=== PATIENT | male | born 1990 | race African-American/Black ===

== ENCOUNTER 2023-06-01 09:02 | Emergency (ER) | payer MEDICAID, SELFPAY ==
--- NOTE | ~2023-06-01 | XR_ITS ---
EXAMINATION: XR LUMBOSACRAL SPINE CLINICAL INFORMATION: Tenderness COMPARISON: None available. TECHNIQUE: Three views of the lumbosacral spine. FINDINGS: The vertebral bodies are normal. Facet arthropathy is present at L5-S1. The disc spaces are preserved and the vertebral alignment is normal. The paraspinal soft tissues are normal. XR/XR lumbar spine 2-3V IMPRESSION: 1. No acute fracture or malalignment. 2. Facet arthropathy at L5-S1.
[2023-06-01 09:09] VITALS: BP 117/67; PULSE 75; RESP 20; TEMP 36; O2SAT 100; BMI 21.2
--- NOTE | 2023-06-01 09:20 | ED_ITS ---
HPI - General Adult General Chief complaint: Back Pain/Injury Stated complaint: severe back pain Time Seen by Provider: 06/01/23 09:17 Source: patient Mode of arrival: ambulatory Limitations: no limitations History of Present Illness HPI narrative: Patient is a 32-year-old male presenting to the emergency department with complaint of lower back pain for the past several months. States the pain radiates down posterior aspect of bilateral upper legs, left worse than right. Also reports numbness and tingling to bilateral posterior upper legs extending to knee. Denies any initial fall or other trauma. Has been using ibuprofen with little relief. States he woke to go to work this morning and was unable to go due to with the pain. States pain is relieved with laying supine and worsens with movement. Denies any fevers. Denies any bowel or bladder incontinence, denies any saddle anesthesia. Denies any urinary retention. Does not have a PCP. 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 complaint: back pain Onset (ago): month(s) Location: back Radiation: distal Severity: severe Quality: sharp Pain Consistency: colicky Relieving factors: rest Exacerbating factors: movement Associated symptoms: other (numbness/tingling to posterior upper legs) Treatments prior to arrival: NSAID Related Data Previous Rx's Medication Instructions Recorded lidocaine 5 % topical patch 1 patch topical DAILY #15 ea 06/01/23 prednisone 20 mg tablet 40 mg PO DAILY #10 tabs 06/01/23 Allergies Allergy/AdvReac Type Severity Reaction Status Date / Time No Known Allergies Allergy Unverified 06/16/20 18:07 Review of Systems Review of Systems: As per HPI. Yes all other systems are reviewed and are negative Constitutional: Constitutional: Reports as per HPI [facility] Social History Social History Advance Directives: No Advance Directives Information Provided: No Physical Exam ED Vital Signs: Vital Signs - 24 hr 06/01/23 09:09 Temperature 96.8 F Pulse Rate 75 Respiratory Rate 20 Blood Pressure 117/67 Pulse Oximetry 100 Oxygen Delivery Method Room Air BMI result Body Mass Index 21.2 Vital signs have been reviewed and appear to be correct. Blood pressure normal. Heart rate normal. Respiratory rate normal. Temperature normal. Oxygen saturation normal. Const General: cooperative, healthy appearing and no acute distress Orientation/consciousness: oriented to person, oriented to place, oriented to time and patient oriented x3 Limitations: no limitations HENMT Head: Yes normocephalic and Yes atraumatic Ears: external ears normal General nose exam: Normal external nose present Face and sinus: Yes face symmetric Mouth: oropharynx normal and moist mucous membranes Throat: Yes uvula midline Eyes Pupils: Equal, round and reactive pupils present Neck Neck: Yes normal visual inspection, Yes no meningeal signs and Yes supple Resp Effort & Inspection: normal respiratory effort and able to speak in complete sentences Auscultation: clear to auscultation bilaterally Cardio Rate: regular rate Rhythm: regular rhythm Heart sounds: S1 normal heart sound present and S2 normal heart sound present GI Palpation (GI): Soft to palpation and nontender Auscultation: normoactive bowel sounds General: Yes no CVA tenderness Back/Spine/Pelvis Back: no CVA tenderness Cervical Spine: normal cervical lordosis and cervical ROM normal Thoracic/Lumbar Spine: thoracic and lumbar spine normal to inspection, thoraco- lumbar ROM normal, straight leg raise negative bilaterally, No thoracic spinal tenderness and lumbar spinal tenderness at L3 and at L4 Pelvis: no pain with anterior-posterior compression and no pain with lateral compression Skin General skin exam: elasticity normal and turgor normal Neuro General: oriented to person, oriented to place, oriented to time, patient orie nted x3, gait normal, tone normal, moves all extremities, Normal light touch and pain sensation, no meningeal signs, no focal motor deficits, CN's II-XI intact bilaterally and normal sensation to monofilament Cranial nerves: Yes Equal, round and reactive pupils present Cognition (Neuro): normal cognition Motor exam (neuro): 5/5 motor strength present throughout, Normal motor muscle tone present throughout and Motor abnormalities not present Sensory Exam: Normal double simultaneous stimulation for sensation Extrem General: Yes full ROM, Yes no pedal edema and Yes no calf tenderness Psych Mental Status: mental status grossly normal Affect: normal affect Thought process: Normal thought process present Medical Decision Making Medical Decision Making MDM Narrative: Patient is a 32-year-old male presenting to the emergency department with complaint of lower back pain for the past several months. On exam patient is awake, A+Ox3, VS WNL, afebrile, normal neurological exam without focal deficits, mild tenderness to palpation of lumbar spine, SLR negative bilaterally, 5/5 strength bilateral lower extremities, DTRs 2+ throughout. Given reported symptoms and physical exam findings, initial differential includes lumbar radiculopathy, lumbar strain, disc herniation. Do not suspect cauda equina, cord compression, spinal epidural abscess. X-ray notable for arthropathy at L5/S1. My interpretation is in agreement with the radiologist's interpretation. Results discussed with patient and all questions answered. Will treat patient with short course of prednisone and lidocaine patches. Provided patient with information for obtaining a PCP, and urged him to establish care with a PCP soon. Discussed with patient that he will likely require physical therapy given that his symptoms have persisted for months. Return precautions discussed at bedside. Patient verbalized understanding of and agreement with plan. Differential Diagnosis Differential Diagnoses: The differential diagnosis associated with the presentation includes As per [facility] Independent Interpretation I performed an independent interpretation of an: Plain X-Ray Interpretation: no acute abnormality, arthropathy at L5-S1 Radiology Impression Discussion of test interpretation with radiology: I have reviewed the radiologist's reading. Radiologist Impression: XR/XR lumbar spine 2-3V IMPRESSION: 1.? No acute fracture or malalignment. 2.? Facet arthropathy at L5-S1. External Record Review External record reviewed: Inpatient record, Office record and Outpatient record Prescription Management I considered prescription management with: Pain Medication and Other Discharge Plan Discharge Clinical Impression: Lumbar radiculopathy Patient Disposition: Home, Self-Care Instructions: Lumbar Radiculopathy (ED), Lower Back Exercises (ED) Additional Instructions: You were evaluated in the emergency department today for back pain. Your evaluation did not show signs of medical conditions requiring emergent intervention at this time. We recommended that you use ibuprofen or Tylenol per package directions every 6 hours as needed for pain. If necessary, you can alternate these medications so that you take one medication every 3 hours. For instance, at noon take ibuprofen, then at 3:00 p.m. take Tylenol, then at 6:00 p.m. take ibuprofen. You have been prescribed a short course of a steroid called prednisone for 5 days. You should not take any NSAIDs (ibuprofen, naproxen) while you are taking the prednisone. Once you complete the course of prednisone you can resume taking NSAIDs. You have been prescribed 5% topical lidocaine patches which you can wear for up to 12 hours in a 24 hour period. Do not apply heat directly over the patches. Please use the information provided to establish care with a primary care provider as you will likely require physical therapy to improve your symptoms. Return to the emergency department if you experience worsening back pain, difficulty walking, fevers, numbness, tingling, incontinence, groin numbness or tingling, or any other concerning symptoms. Prescriptions: New prednisone 20 mg tablet 40 mg PO DAILY Qty: 10 0RF lidocaine 5 % adhesive patch,medicated 1 patch topical DAILY Qty: 15 0RF Rx Instructions: leave on most painful area for up to 12 hrs Stand Alone Forms: Work/School Release
== END 2023-06-01 11:05 | disposition home or self-care (01) ==
PROVIDERS: Emergency Provider Emergency Medicine
DX: M54.16 Radiculopathy, lumbar region (principal); M54.50 Low back pain, unspecified
CPT/HCPCS: 72100; 99283

== ENCOUNTER 2024-10-06 10:17 | Outpatient (REF) | payer MEDICAID, SELFPAY ==
[2024-10-06 14:32] LABS: Alanine Aminotransferase 58 U/L (0-40); Albumin Level 4.6 g/dL (3.5-5.0); Alkaline Phosphatase 75 U/L (39-117); Anion Gap 12 (12-20); Aspartate Amino Transferase 88 U/L (5-37); Bilirubin Direct < 0.2 mg/dL (0.0-0.5); Bilirubin Total 0.1 mg/dL (0.0-1.0); Blood Urea Nitrogen 5 mg/dL (9-16); Calcium 9.5 mg/dL (8.4-10.2); Carbon Dioxide 26 mmol/L (22-29); Chloride 106 mmol/L (96-108); Cholesterol 176 mg/dL (<200); Estimated Glomerular Filt Rate > 60; Glucose Random 73 mg/dL (60-115); HDL Cholesterol 55 mg/dL (>40); LDL Cholesterol Calculated 105 mg/dL (<100); Potassium 3.8 mmol/L (3.3-5.1); Sodium 140 mmol/L (135-145); Total Protein 8.6 g/dL (6.5-8.0); Triglycerides 80 mg/dL (<150)
== END 2024-10-06 10:18 | disposition home or self-care (01) ==
LOC: HO.CHCLDS 10:17
PROVIDERS: Visit Provider Student in an Organized Health Care Education/Training Program
DX: F10.230 Alcohol dependence with withdrawal, uncomplicated (principal)
CPT/HCPCS: 36415; 80048; 80061; 80076